=== PATIENT | male | born 1980 | race Two or more races ===

== ENCOUNTER 2021-11-01 11:51 | Emergency (ER) | payer OTHER ==
[~2021-11-01] VITALS: Ht 177.8 cm; Wt 86.2 kg
--- NOTE | 2021-11-01 12:04 | NUR ---
DR SAGE AT BEDSIDE
[2021-11-01 12:56] LABS: BASOPHILS # (AUTO) 0.1 K/uL (0.0-0.2); BASOPHILS % (AUTO) 1.6 % (0.0-2.0); EOSINOPHILS % (AUTO) 4.4 % (0.0-6.0); HEMATOCRIT 40 % (39-51); HEMOGLOBIN 13.5 g/dL (13.5-17.5); LYMPHOCYTES # (AUTO) 1.6 K/uL (0.8-4.8); LYMPHOCYTES % (AUTO) 26.2 % (20.0-44.0); MEAN CORPUSCULAR HGB CONC 34 g/dl (31.0-36.0); MEAN CORPUSCULAR VOLUME 80 fL (80-96); MONOCYTES # (AUTO) 0.5 K/uL (0.1-1.30); MONOCYTES % (AUTO) 8.1 % (2.0-12.0); NEUTROPHILS # (AUTO) 3.6 K/uL (1.8-8.9); NEUTROPHILS % (AUTO) 59.7 % (43.0-81.0); PLATELET COUNT (AUTO) 337 K/uL (150-450); RED BLOOD CELL COUNT(AUTO) 5.08 MIL/uL (4.5-6.0)
[2021-11-01] MEDS ORDERED: DOXYCYCLINE HYCLATE (100 MG) 100 MG TABLET PO ONE (13:00)
[2021-11-01] MEDS ORDERED: CEFTRIAXONE 500 MG VIAL IM ONE (13:00)
[2021-11-01 13:04] LABS: BILIRUBIN,URINE NEGATIVE (NEGATIVE); COLOR,URINE YELLOW (YELLOW); LEUKOCYTE ESTERASE ,URINE NEGATIVE (NEGATIVE); NITRITE, URINE NEGATIVE (NEGATIVE); PH,URINE 5.5 (5.0-8.0); PROTEIN,URINE TRACE mg/dl (NEGATIVE); UGLUCOSE NEGATIVE (NEGATIVE)
[2021-11-01 13:16] LABS: ALANINE AMINOTRANSFERASE 42 U/L (12-78); ALBUMIN 3.4 g/dL (3.4-5.0); ALCOHOL, BLOOD < 3 mg/dL (0-0); ALKALINE PHOSPHATASE 80 U/L (46-116); ASPARTATE AMINOTRANSFERASE 20 U/L (15-37); BILIRUBIN,DIRECT 0.1 mg/dL (0.0-0.2); BILIRUBIN,TOTAL 0.4 mg/dL (0.2-1.0); CALCIUM, SERUM 8.8 mg/dL (8.5-10.1); CARBON DIOXIDE 28 mmol/L (21-32); CHLORIDE 104 mmol/L (98-107); CREATININE 0.8 mg/dL (0.6-1.3); GLUCOSE 99 mg/dL (74-106); POTASSIUM 3.8 mmol/L (3.5-5.1); SODIUM SERUM 139 mmol/L (136-145); UREA NITROGEN, BLOOD 18 mg/dL (7-18)
[2021-11-01 13:17] LABS: ACETAMINOPHEN < 0 ug/ml (10-30)
[2021-11-01 13:27] LABS: BACTERIA,URINE Few /HPF (None Seen); RBC,URINE 0-2 /HPF (0-2); SQUAMOUS EPITHELIAL CELL,UR Few /HPF (None Seen); WBC,URINE 0-2 /HPF (0-3)
[2021-11-01] MEDS ORDERED: DOXYCYCLINE HYCLATE (100 MG) 100 MG TABLET ONE (13:46)
[2021-11-01] MEDS ORDERED: LIDOCAINE /MPF 1% VIAL 5 ML VIAL ONE (13:46)
[2021-11-01] MEDS ORDERED: CEFTRIAXONE 500 MG VIAL ONE (13:46)
--- NOTE | 2021-11-01 14:46 | NUR ---
Faxed clinicals to [facility] [fax: [phone]].
--- NOTE | 2021-11-01 16:07 | NUR ---
SO DOMINIC CHOI CALLED WITH PT ACCEPTANCE INFO UNDER THE CARE OF DR. MENENDEZ NUMBER FOR REPORT [phone] AWAITING A CALL BACK WITH TRANSPORTATION ETA
--- NOTE | 2021-11-01 17:50 | NUR ---
SO DOMINIC CHOI CALLED WITH A TRANSPORT ETA OF 1800
[2021-11-01 17:54] VITALS: BP 124/67
--- NOTE | 2021-11-01 18:05 | NUR ---
REPORT GIVEN TO AVI SILVA OF [facility] [place].
--- NOTE | 2021-11-01 18:06 | NUR ---
PATIENT PICKED UP BY [facility] IN STABLE CONDITION. ALL BELONGINGS GIVEN TO PATIENT.
== END 2021-11-01 18:06 ==
LOC: ER 12:01
DX: R45.851 Suicidal ideations (principal); F32.A Depression, unspecified; Z20.822 Contact with and (suspected) exposure to COVID-19
CPT/HCPCS: 36415; 80048; 80076; 80143; 80307; 80320; 81001; 85025; 87426; 87491; 87591; 96372; 99285; C9803; J0696; J3490; G0480